=== PATIENT | male | born 1975 | race American Indian/Alaskan Native ===

== ENCOUNTER 2018-12-06 17:09 | Emergency (ER) | payer SELFPAY ==
[2018-12-06 17:53] VITALS: BP 144/80
--- NOTE | 2018-12-06 17:54 | Emergency Department Report ---
Blank Doc - Documentation Documentation: 43 y o male presents with rash to generalized body, states same sx 6 months ago states allergic to metal claer airway, speaking in clear sentences PLAN: steroids, pepcid,benadryl reevaluate
[2018-12-06] MEDS ORDERED: DECADRON IM ONE (17:56)
[2018-12-06] MEDS ORDERED: PEPCID PO ONE (17:57)
[2018-12-06] MEDS ORDERED: BENADRYL PO ONE (17:57)
--- NOTE | 2018-12-06 19:27 | Emergency Department Report ---
ED Rash HPI - HPI Chief Complaint: Skin Rash Stated Complaint: ALLERGIC REACTION Time Seen by Provider: 12/06/18 17:51 Location: Neck, Back, Upper Extremities, Lower Extremities Suspected Cause: Unknown Rash Symptoms: Yes Itching, No Facial Swelling, No Tongue/Oral Swelling, No Breathing Difficulties, No Choking Sensation, No Wheezing/Dyspnea, No Peeling, No Blistering, No Fever, No Lightheaded, No Myalgias Severity: moderate Other History: 43-year-old male here report that he has been having rash for about 6 months that he went to see a different doctor one told him it was contact dermatitis and another one told most metal poison. He reports areas itch and and denies any respiratory symptoms. He cannot remember anything newenvironmental cause rash. Patient has not been to a behavioral health professional as yet. Denies any redness or swelling. Denies any shortness of breath or chest pain. Immunizations up-to-date including tetanus. ED Review of Systems ROS: Stated complaint: ALLERGIC REACTION Other details as noted in HPI Constitutional: denies: chills, fever ENT: denies: throat pain Respiratory: denies: cough, shortness of breath, wheezing Cardiovascular: denies: chest pain, palpitations, edema, syncope Gastrointestinal: denies: nausea, vomiting Musculoskeletal: denies: back pain, joint swelling, arthralgia, myalgia Skin: rash Neurological: denies: headache, numbness, paresthesias, confusion, abnormal gait, vertigo ED Past Medical Hx - Past Medical History Previous Medical History?: Yes Hx Asthma: Yes - Surgical History Past Surgical History?: No - Family History Family history: hypertension - Social History Smoking Status: Current Every Day Smoker Substance Use Type: None - Medications Home Medications: Home Medications Medication Instructions Recorded Confirmed Last Taken Type Ibuprofen [Motrin] 800 mg PO Q8H #30 tablet 07/02/14 Unknown Rx traMADol [Ultram 50 MG tab] 50 mg PO Q6HR PRN #20 tablet 07/02/14 Unknown Rx Famotidine [Pepcid] 40 mg PO QHS #10 tablet 09/12/18 Unknown Rx Prednisone [predniSONE 10 mg 10 mg PO .TAPER #1 tab.ds.pk 09/12/18 Unknown Rx (6-Day Pack, 21 Tabs)] diphenhydrAMINE [Benadryl CAP] 25 mg PO Q8HR PRN #20 capsule 09/12/18 Unknown Rx Triamcinolone 0.1% [Kenalog 0.1% 1 applic TP BID 7 Days #1 tube 12/06/18 Unknown Rx CREAM] hydrOXYzine HCL [Atarax] 25 mg PO Q6HR PRN #16 tablet 12/06/18 Unknown Rx predniSONE [Prednisone] 10 mg PO QAM 6 Days #1 tab.ds.pk 12/06/18 Unknown Rx Rash Exam - Exam General: Vital signs noted. No distress. Alert and acting appropriately. This is a 43-year-old male well-nourished well-developed in no acute distress. HEENT: No Periorbital Edema, No Conjuctival Injection, No Chemosis, No Perioral Edema, No Tongue Edema, No Uvular Edema, No Compromised Airway, No Drooling Lungs: Yes Good Air Exchange, No Wheezes, No Ronchi, No Stridor, No Cough, No Labored Respirations, No Retractions, No Use of Accessory Muscles, No Other Abnormal Lung Sounds Heart: Yes Regular, No Murmur Skin: Yes Maculopapular Rash (noted to back and front of neck, chest, upper or lower extremity and posterior thorax in clusters.), Yes Other (areas hypopigmented with some scaling.), No Morbilliform rash, No Bulla(e), No Excoriations, No Weeping, No Tenderness, No Erythema, No Edema, No Encrustations Other: Positive: Abdomen Normal, Neurologic Normal, Musculoskeletal Normal ED Course Vital Signs 12/06/18 17:51 Temperature 98 F Pulse Rate 64 Respiratory 16 Rate Blood Pressure 144/80 O2 Sat by Pulse 100 Oximetry - Reevaluation(s) Reevaluation #1: 12/06/18 20:02 Patient received Decadron 10 mg IM Pepcid 20 mg by mouth and Benadryl 25 mg by mouth in emergency room and he said the chin has been relieved some. ED Medical Decision Making - Medical Decision Making This is a 43-year-old male here with rash on and off for the past 6 months and been to 2 doctors but not a behavioral health professional. Patient was treated in emergency room today for contact dermatitis with Benadryl 25 mg by mouth, Decadron 10 mg IM and Pepcid 20 mg by mouth. I discussed with him that it appears that he has contact dermatitis but I cannot tell him what he is allergic to so he needs to go to behavioral health professional for further evaluation of rash dyspnea and therefore 6 months. Patient was understanding and discharged home in stable condition with prescription for Prednisone Dosepak, triamcinolone and Atarax and to follow-up with behavioral health professional in 3-5 days. Critical care attestation.: If time is entered above; I have spent that time in minutes in the direct care of this critically ill patient, excluding procedure time. ED Disposition Clinical Impression: Pruritus Contact dermatitis Qualifiers: Contact dermatitis type: unspecified Contact dermatitis trigger: unspecified trigger Qualified Code(s): L25.9 - Unspecified contact dermatitis, unspecified cause Disposition: - TO HOME OR SELFCARE Is pt being admited?: No Does the pt Need Aspirin: No Condition: Stable Instructions: Contact Dermatitis (ED), Itchy Skin (ED) Additional Instructions: Keep affected areas clean and dry Follow up with [employer] Work[employer] Take atarax for itching but please do not drive or operate heavy machinery while taking tis medication as it causes drowsiness Prescriptions: hydrOXYzine HCL [Atarax] 25 mg PO Q6HR PRN #16 tablet PRN Reason: Itching predniSONE [Prednisone] 10 mg PO QAM 6 Days #1 tab.ds.pk Triamcinolone 0.1% [Kenalog 0.1% CREAM] 1 applic TP BID 7 Days #1 tube Referrals: JOSEPH GIBBS MD [Primary Care Provider] - 3-5 Days VIRGILIO MATHEW MD [Staff Physician] - 3-5 Days [facility] [Outside] - 3-5 Days Forms: Work/School Release Form(ED)
== END 2018-12-06 20:19 | disposition home or self-care (01) ==
LOC: ED 17:09
DX: L29.9 Pruritus, unspecified (principal); J45.909 Unspecified asthma, uncomplicated; F17.200 Nicotine dependence, unspecified, uncomplicated
CPT/HCPCS: 96372; 99282; J1100

== ENCOUNTER 2019-01-12 21:50 | Emergency (ER) | payer OTHER ==
--- NOTE | 2019-01-12 21:52 | Emergency Department Report ---
Stated Complaint: POSSIBLE ALLERGIC RX Time Seen by Provider: 01/12/19 21:51 - HPI History of Present Illness: rash around waste and on arm seen for same in past simple rash vss mse completed MSE screening note: Focused history and physical exam performed. Due to findings the following was ordered: ED Disposition for MSE Condition: Stable
[2019-01-12 21:57] VITALS: BP 131/80
[2019-01-12] MEDS ORDERED: DECADRON IM ONE (21:57)
[2019-01-12] MEDS ORDERED: SOLU-Medrol IM ONE (21:57)
[2019-01-12] MEDS ORDERED: PEPCID PO ONE (21:58)
--- NOTE | 2019-01-12 21:59 | Emergency Department Report ---
ED Rash HPI - HPI Chief Complaint: Skin Rash Stated Complaint: POSSIBLE ALLERGIC RX Time Seen by Provider: 01/12/19 21:51 Duration: 3 Days Location: Upper Extremities, Other (waste) Suspected Cause: Other (suspect anai) Rash Symptoms: Yes Itching, Yes Facial Swelling (r eye), No Tongue/Oral Swelling, No Breathing Difficulties, No Choking Sensation, No Wheezing/Dyspnea, No Peeling, No Blistering, No Fever, No Lightheaded, No Malaise, No Myalgias Severity: mild Other History: here for same in past. benadryl not working. has not seen derm ED Review of Systems ROS: Stated complaint: POSSIBLE ALLERGIC RX Other details as noted in HPI Comment: All other systems reviewed and negative Constitutional: denies: chills Eyes: denies: as per HPI ENT: denies: throat pain Respiratory: denies: no symptoms reported Cardiovascular: denies: palpitations Endocrine: denies: flushing Gastrointestinal: denies: nausea Genitourinary: denies: urgency Musculoskeletal: denies: back pain Skin: as per HPI, rash Neurological: denies: headache Psychiatric: denies: anxiety Hematological/Lymphatic: denies: easy bleeding ED Past Medical Hx - Past Medical History Previous Medical History?: Yes Hx Asthma: Yes Additional medical history: Contact Dermatitis - Surgical History Past Surgical History?: No - Family History Family history: no significant - Social History Smoking Status: Current Every Day Smoker Substance Use Type: None - Medications Home Medications: Home Medications Medication Instructions Recorded Confirmed Last Taken Type Cetirizine HCl [ZyrTEC] 10 mg PO DAILY #30 capsule 01/12/19 Unknown Rx Triamcinolone 0.1% [Kenalog 0.1% 1 applic TP BID 7 Days #1 tube 01/12/19 Unknown Rx CREAM] predniSONE [Deltasone] 20 mg PO DAILY #5 tablet 01/12/19 Unknown Rx Rash Exam - Exam General: Vital signs noted. No distress. Alert and acting appropriately. HEENT: Yes Periorbital Edema (mild swelling r eye- not sure related), No Conjuctival Injection, No Chemosis, No Perioral Edema, No Tongue Edema, No Uvular Edema, No Compromised Airway, No Drooling Lungs: Yes Good Air Exchange, No Wheezes, No Ronchi, No Stridor, No Cough, No Labored Respirations, No Retractions, No Use of Accessory Muscles, No Other Abnormal Lung Sounds Heart: Yes Regular, No Murmur Front/Back of Body, Lg (Color): 1 - a/c appearing rash of irritation at belt area. has had before. vss. abc intact. no wheezing Skin: Yes Excoriations, Yes Erythema, Yes Encrustations, Yes Other, No Urticarial Rash, No Maculopapular Rash, No Morbilliform rash, No Bulla(e), No Weeping, No Tenderness, No Edema Other: Positive: Abdomen Normal, Neurologic Normal, Musculoskeletal Normal ED Course Vital Signs 01/12/19 21:53 Temperature 97.8 F Pulse Rate 85 Respiratory 18 Rate Blood Pressure 131/80 [Left] O2 Sat by Pulse 99 Oximetry ED Medical Decision Making - Medical Decision Making simple rash medicated in ER dc home with derm follow up Vital Signs 01/12/19 01/12/19 21:53 21:58 Temperature 97.8 F 97.8 F Pulse Rate 85 85 Respiratory 18 18 Rate Blood Pressure 131/80 Blood Pressure 131/80 [Left] O2 Sat by Pulse 99 99 Oximetry Critical care attestation.: If time is entered above; I have spent that time in minutes in the direct care of this critically ill patient, excluding procedure time. ED Disposition Clinical Impression: Allergic reaction, Dermatitis Disposition: DC- TO HOME OR SELFCARE Is pt being admited?: No Does the pt Need Aspirin: No Condition: Stable Instructions: Allergies (ED), Acute Rash (ED) Additional Instructions: meds as ordered today continue home benadryl follow up with derm referral below Referrals: LIZETT CAMPBELL MD [Referring] - 3-5 Days Time of Disposition: 22:00
== END 2019-01-12 22:30 | disposition home or self-care (01) ==
LOC: ED 21:50
DX: T78.40XA Allergy, unspecified, initial encounter (principal); L30.9 Dermatitis, unspecified; J45.909 Unspecified asthma, uncomplicated; F17.200 Nicotine dependence, unspecified, uncomplicated; X58.XXXA Exposure to other specified factors, initial encounter
CPT/HCPCS: 96372; 99282; J1100; J2920

== ENCOUNTER 2019-05-31 23:51 | Emergency (ER) | payer OTHER ==
[2019-06-01 00:22] LABS: Basophils # (Auto) 0.1 K/mm3 (0.0-0.1); Basophils % (Auto) 0.4 % (0.0-1.8); Eosinophils # (Auto) 0.1 K/mm3 (0.0-0.4); Eosinophils % (Auto) 0.5 % (0.0-4.3); Hematocrit 49.1 % (35.5-45.6); Hemoglobin 16.8 gm/dl (11.8-15.2); Lymphocytes # (Auto) 1.6 K/mm3 (1.2-5.4); Lymphocytes % (Auto) 11.7 % (13.4-35.0); Mean Corpuscular HGB Conc 34 % (32-34); Mean Corpuscular Volume 97 fl (84-94); Monocytes # (Auto) 1.1 K/mm3 (0.0-0.8); Monocytes % (Auto) 8.1 % (0.0-7.3); Platelet Count 380 K/mm3 (140-440); Red Blood Count 5.07 M/mm3 (3.65-5.03)
[2019-06-01 00:40] LABS: BUN/Creatinine Ratio 9; Blood Urea Nitrogen 9 mg/dL (9-20); Calcium 9.9 mg/dL (8.4-10.2); Hemolysis Index 75
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
[2019-06-01 01:33] LABS: Alanine Aminotransferase 12 units/L (7-56); Albumin 4.8 g/dL (3.9-5)
[2019-06-01 01:34] LABS: Bilirubin,Direct < 0.2 mg/dL (0-0.2)
[2019-06-01 11:50] LABS: Bilirubin,Urine NEG (Negative); Blood,Urine NEG (Negative); Color,Urine Amber (Yellow); Mucus,Urine 3+ /HPF
[2019-06-01 12:28] LABS: Benzodiazepines Screen,Urine PRESUMPTIVE NEGATIVE; Methadone Screen,Urine PRESUMPTIVE NEGATIVE; Opiate Screen,Urine PRESUMPTIVE NEGATIVE
[2019-06-01 12:53] LABS: Amphetamine Screen,Urine PRESUMPTIVE POSITIVE; Cannabinoid Screen,Urine PRESUMPTIVE POSITIVE; Cocaine Screen,Urine PRESUMPTIVE POSITIVE
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
[2019-06-01] MEDS ORDERED: LEVAQUIN PO ONE (23:23)
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
[2019-06-03 09:55] VITALS: BP 122/79
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
== END 2019-06-03 11:23 | disposition home or self-care (01) ==
LOC: ED 23:51
DX: F15.20 Other stimulant dependence, uncomplicated (principal); F12.10 Cannabis abuse, uncomplicated; F22 Delusional disorders; J45.909 Unspecified asthma, uncomplicated; L25.9 Unspecified contact dermatitis, unspecified cause; F17.200 Nicotine dependence, unspecified, uncomplicated; F14.10 Cocaine abuse, uncomplicated; Z79.899 Other long term (current) drug therapy
CPT/HCPCS: 36415; 80048; 80076; 80307; 80320; 81001; 85025; 87086; G0480

== ENCOUNTER 2019-07-02 16:21 | Emergency (ER) | payer SELFPAY ==
[2019-07-02 16:27] VITALS: BP 129/85
--- NOTE | 2019-07-02 16:35 | Emergency Department Report ---
ED Rash HPI - HPI Chief Complaint: Skin Rash Stated Complaint: RASH ALL OVER ED Review of Systems ROS: Stated complaint: RASH ALL OVER Other details as noted in HPI Eyes: denies: eye pain Psychiatric: denies: anxiety, depression ED Past Medical Hx - Past Medical History Hx Asthma: Yes Additional medical history: Contact Dermatitis - Social History Smoking Status: Never Smoker Substance Use Type: None - Medications Home Medications: Home Medications Medication Instructions Recorded Confirmed Last Taken Type Cetirizine HCl [ZyrTEC] 10 mg PO DAILY #30 capsule 01/12/19 Unknown Rx Triamcinolone 0.1% [Kenalog 0.1% 1 applic TP BID 7 Days #1 tube 01/12/19 Unknown Rx CREAM] predniSONE [Deltasone] 20 mg PO DAILY #5 tablet 01/12/19 Unknown Rx Ciprofloxacin HCl [Ciprofloxacin 500 mg PO Q12HR #14 tab 06/03/19 Unknown Rx TAB] Rash Exam - Exam General: Vital signs noted. No distress. Alert and acting appropriately. ED Course Vital Signs 07/02/19 16:26 Temperature 98.0 F Pulse Rate 92 H Respiratory 18 Rate Blood Pressure 129/85 O2 Sat by Pulse 99 Oximetry Critical care attestation.: If time is entered above; I have spent that time in minutes in the direct care of this critically ill patient, excluding procedure time. ED Disposition Condition: Stable
--- NOTE | 2019-07-02 16:41 | Emergency Department Report ---
Blank Doc - Documentation Documentation: This is a 43-year-old male that presents with generlized rash. No angiedema. This initial assessment/diagnostic orders/clinical plan/treatment(s) is/are subject to change based on patient's health status, clinical progression and re- assessment by fellow clinical providers in the ED. Further treatment and workup at subsequent clinical providers discretion. Patient/guardians urged not to elope from the ED as their condition may be serious if not clinically assessed and managed. Initial orders include: 1- Patient sent to [facility] for further evaluation and treatment
[2019-07-02] MEDS ORDERED: DELTASONE PO ONE (16:52)
[2019-07-02] MEDS ORDERED: CLARITIN PO ONE (16:52)
--- NOTE | 2019-07-02 16:52 | Emergency Department Report ---
ED Rash HPI - HPI Chief Complaint: Skin Rash Stated Complaint: RASH ALL OVER Time Seen by Provider: 07/02/19 16:30 Location: Other Suspected Cause: Unknown Rash Symptoms: Yes Itching, No Facial Swelling, No Tongue/Oral Swelling, No Breathing Difficulties, No Choking Sensation, No Wheezing/Dyspnea, No Peeling, No Blistering, No Fever, No Lightheaded, No Malaise, No Myalgias Severity: mild Other History: 43 YO WITH A/C RASH. NO SYSTEMIC S/S. OUT OF HIS MEDS. DID NOT FOLLOW UP WITH DERM. [facility] INTACT. [facility] ED Review of Systems ROS: Stated complaint: RASH ALL OVER Other details as noted in HPI Comment: All other systems reviewed and negative Constitutional: denies: chills, fever ENT: denies: ear pain, throat pain Respiratory: denies: cough, shortness of breath, wheezing Cardiovascular: denies: chest pain, palpitations Endocrine: no symptoms reported Gastrointestinal: denies: abdominal pain, nausea, diarrhea Genitourinary: denies: urgency, dysuria Musculoskeletal: denies: back pain, joint swelling, arthralgia Skin: denies: rash, lesions Neurological: denies: headache, weakness, paresthesias Hematological/Lymphatic: denies: easy bleeding, easy bruising ED Past Medical Hx - Past Medical History Previous Medical History?: Yes Hx Asthma: Yes Additional medical history: Contact Dermatitis - Surgical History Past Surgical History?: No - Family History Family history: no significant - Social History Smoking Status: Never Smoker Substance Use Type: None - Medications Home Medications: Home Medications Medication Instructions Recorded Confirmed Last Taken Type Cetirizine HCl [ZyrTEC] 10 mg PO DAILY #30 capsule 07/02/19 Unknown Rx Triamcinolone 0.1% [Kenalog 0.1% 1 applic TP BID 7 Days #1 tube 07/02/19 Unknown Rx CREAM] predniSONE [Deltasone] 20 mg PO DAILY #5 tablet 07/02/19 Unknown Rx Rash Exam - Exam General: Vital signs noted. No distress. Alert and acting appropriately. HEENT: No Periorbital Edema, No Conjuctival Injection Lungs: Yes Good Air Exchange, No Wheezes Heart: Yes Regular Skin: Yes Excoriations, Yes Erythema, No Urticarial Rash, No Weeping, No Tenderness, No Edema Other: Positive: Abdomen Normal, Neurologic Normal, Musculoskeletal Normal ED Course Vital Signs 07/02/19 16:26 Temperature 98.0 F Pulse Rate 92 H Respiratory 18 Rate Blood Pressure 129/85 O2 Sat by Pulse 99 Oximetry ED Medical Decision Making - Medical Decision Making MEDICATED IN ER DC HOME WITH DC PLAN OF CARE INCLUDING DERM FOLLOW UP Vital Signs 07/02/19 16:26 Temperature 98.0 F Pulse Rate 92 H Respiratory 18 Rate Blood Pressure 129/85 O2 Sat by Pulse 99 Oximetry - Differential Diagnosis A/C RASH Critical care attestation.: If time is entered above; I have spent that time in minutes in the direct care of this critically ill patient, excluding procedure time. ED Disposition Clinical Impression: Contact dermatitis and eczema Disposition: DC-01 TO HOME OR SELFCARE Is pt being admited?: No Does the pt Need Aspirin: No Condition: Stable Instructions: Eczema (ED) Additional Instructions: MEDS ORDERED FOLLOW UP WITH SKIN MD REFERRAL BELOW Prescriptions: predniSONE [Deltasone] 20 mg PO DAILY #5 tablet Triamcinolone 0.1% [Kenalog 0.1% CREAM] 1 applic TP BID 7 Days #1 tube Cetirizine HCl [ZyrTEC] 10 mg PO DAILY #30 capsule Referrals: LIZETT CAMPBELL MD [Referring] - 3-5 Days Time of Disposition: 16:54
== END 2019-07-02 17:00 | disposition home or self-care (01) ==
LOC: ED 16:21
DX: L25.9 Unspecified contact dermatitis, unspecified cause (principal); J45.909 Unspecified asthma, uncomplicated; Z79.899 Other long term (current) drug therapy
CPT/HCPCS: 99282; J7512